=== PATIENT | female | born 2000 | race Caucasian/White ===

== ENCOUNTER 2018-12-18 06:22 | Emergency (ER) | payer OTHER, SELFPAY ==
[2018-12-18 06:23] VITALS: BP 131/76; PULSE 105; RESP 21; TEMP 37.5; O2SAT 97; BMI 34.6
[2018-12-18 06:30] VITALS: O2SAT 97
--- NOTE | 2018-12-18 06:47 | ED.VIS.GEN ---
History of Present Illness Chief Complaint: Shortness of Breath Informant: Patient Narrative: Presents with cough congestion fevers subjective for the last 3 days. She did go to a clinic a few days ago and was told she likely has asthma flareup. She was given prednisone. She was not having any wheezing at that time. She never took the prednisone. She is concerned she could have bronchitis versus pneumonia. She had some intermittent chills runny nose stuffy nose. Current severity is mild to moderate. No recent antibiotics. Past Medical History - Allergies and Home Meds Allergies/Adverse Reactions: Allergies DUST MITES Allergy (Uncoded 12/18/18 06:27) Other STUFFY NOSE AND SNEEZING SEASONAL Allergy (Uncoded 12/18/18 06:27) Other STUFFY NOSE AND SNEEZING Primary Care Physician: Doctor,Your [STAFF PHYSICIAN] - Prior records reviewed: Yes Past Medical History: - - Asthma, bronchitis, pneumonia Surgical History: noncontributory Lives: With Family Smoking Status: Never smoker Alcohol: None Drugs: None Review of Systems General: Reports: Chills, Fever. Denies: Sweats Eyes: Denies: Visual changes - bilaterally, Diplopia ENT: Denies: Rhinorrhea, Sore throat Cardiovascular: Denies: Chest pain, Palpitations Respiratory: Reports: Cough, Dyspnea on exertion. Denies: Dyspnea Gastrointestinal: Denies: Abdominal pain, Nausea, Vomiting, Diarrhea, Melena, Hematochezia Genitourinary: Denies: Dysuria, Hematuria, Frequency Musculoskeletal: Denies: Back pain, Extremity Pain Skin: Denies: Rash, Wounds Neurological: Denies: Headache, Weakness, Numbness Physical Exam Vital Signs/Narrative: Vital Signs Temp Pulse Resp BP Pulse Ox 12/18/18 06:23 99.5 F H 105 H 21 H 131/76 H 97 General: Well nourished, Well developed, No Acute Distress Head: Normocephalic, Atraumatic Eyes: Perrl, EOMI ENT: Moist mucous membranes, No rhinorrhea Neck: Supple, Nontender Cardiovascular: Regular rhythm, No murmurs, Tachycardia. Negative for: Regular rate Respiratory: No distress, CTA bilaterally, Chest nontender Abdomen: Soft, Nontender, Nondistended, Normal bowel sounds Back: Nontender, Normal Inspection Extremities: Nontender, No edema Skin: Normal color, No rash Neurological: Alert, Oriented x3, Cranial nerves II-XII grossly intact, Normal Strength, Normal Sensation Psychological: Normal affect, Normal Mood Diagnostic/Tx/Re-eval - Medical Decision Making Patient given a dose of azithromycin. She will be discharged with 4 days of azithromycin to take after today. At this time we will treat her as a clinical pneumonia. She appears nontoxic. Normal pulse ox. I do not feel she needs a chest x-ray. She will follow-up as an outpatient ED Disposition - Plan for ED Patient: Disposition: Home or Assisted Living Diagnosis: Pneumonia Instructions: PNEUMONIA (Adult) Prescriptions: Azithromycin 250 mg PO DAILY #4 tab Prescription Printed Referrals: Doctor,Your [STAFF PHYSICIAN] -
[2018-12-18] MEDS: Azithromycin 250 MG Tablet 500 MG PO (06:58)
[2018-12-18 06:59] VITALS: BP 114/76; PULSE 105; RESP 19; O2SAT 97
== END 2018-12-18 07:08 | disposition home or self-care (01) ==
LOC: ED 06:55
PROVIDERS: Emergency Provider Emergency Medicine
DX: J18.9 Pneumonia, unspecified organism (principal)
CPT/HCPCS: 99283